=== PATIENT | male | born 1950 | race Caucasian/White ===

== ENCOUNTER 2017-02-06 12:03 | Inpatient (IN) | payer BC, MEDICARE ==
[~2017-02-06] VITALS: Ht 170.2 cm; Wt 79.1 kg
[2017-02-06 13:00] LABS: HEMATOCRIT 42.1 % (39.2-51.8); HEMOGLOBIN 14.1 g/dL (13.7-18.0); WHITE BLOOD COUNT 6.6 x10^3/uL (3.4-10)
[2017-02-06] MEDS ORDERED: ATOR20TA9 PO (13:06)
[2017-02-06] MEDS ORDERED: LISI-170 PO (13:06)
[2017-02-06 13:13] LABS: BLOOD UREA NITROGEN 16 mg/dL (7-18)
[2017-02-06 14:06] VITALS: BP 144/82
[2017-02-06 17:00] VITALS: BP 167/77
[2017-02-06] MEDS ORDERED: PNEUMOC 13-VALENT VACC, 0.5 ML IM-VACC ONE (17:00)
[2017-02-06] MEDS ORDERED: CITA10TA4 PO (17:56)
[2017-02-06] MEDS ORDERED: ASPI-496 PO (17:56)
[2017-02-06] MEDS ORDERED: ALPR0.257 SL (17:57)
[2017-02-06] MEDS ORDERED: NEBI10TA3 PO (17:58)
[2017-02-06] MEDS ORDERED: HYDR-3144 PO (17:59)
[2017-02-06] MEDS ORDERED: DOCUSATE 100 MG CAPSULE PO PRN (18:30)
[2017-02-06] MEDS ORDERED: POLYETHYLENE GLYCOL 17 GM PACKET PO PRN (18:30)
[2017-02-06] MEDS ORDERED: ACETAMINOPHEN 325 MG TABLET PO PRN (18:30)
[2017-02-06] MEDS ORDERED: BISACODYL 10 MG SUPP PR PRN (18:30)
[2017-02-06] MEDS ORDERED: ENALAPRILAT 1.25 MG/ML, 2ML IVPush PRN (18:30)
[2017-02-06] MEDS ORDERED: hydrALAzine 20 MG/ML, 1ML IVPush PRN (18:30)
[2017-02-06] MEDS ORDERED: ONDANSETRON 2MG/ML, 2ML IVPush PRN (18:30)
[2017-02-06 18:41] LABS: BLOOD UREA NITROGEN 15 mg/dL (7-18)
[2017-02-06 18:45] VITALS: BP 137/73
[2017-02-06 18:49] LABS: ASPARTATE AMINO TRANSFERASE 19 U/L (15-37); C-REACTIVE PROTEIN, QUANT 0.04 mg/dL (0.02-0.49)
[2017-02-06] MEDS: ATORVASTATIN 40 MG TABLET PO SCH (20:38)
[2017-02-06 21:14] VITALS: BP 120/74
[2017-02-07] MEDS: OXYcodone IR 5MG TABLET PO PRN ×2 (01:06→17:02)
[2017-02-07 01:15] VITALS: BP 116/64
[2017-02-07] MEDS ORDERED: SODIUM CHLORIDE 0.9% 1,000 ML IV SCH (02:00)
[2017-02-07] MEDS: HYDROcodone/APAP 10/325 MG TABLET PO PRN ×2 (05:27→17:07)
[2017-02-07 05:50] LABS: HEMATOCRIT 38.8 % (39.2-51.8); HEMOGLOBIN 13.3 g/dL (13.7-18.0); WHITE BLOOD COUNT 5.5 x10^3/uL (3.4-10)
[2017-02-07 06:20] LABS: ASPARTATE AMINO TRANSFERASE 19 U/L (15-37)
[2017-02-07 06:27] VITALS: BP 136/79
[2017-02-07 07:22] LABS: BLOOD UREA NITROGEN 15 mg/dL (7-18)
[2017-02-07] MEDS: LISINOPRIL 20 MG TABLET PO SCH (09:43)
[2017-02-07] MEDS: NEBIVOLOL HCL 5 MG TABLET PO SCH (09:44)
[2017-02-07] MEDS: CITALOPRAM 10 MG TABLET PO SCH (09:44)
[2017-02-07] MEDS: ASPIRIN 81 MG TABLET EC PO SCH (09:44)
[2017-02-07] MEDS ORDERED: LIDOCAINE 2%, 20ML ONE ×2 (12:02→12:55)
[2017-02-07] MEDS ORDERED: CEFAZOLIN PMX 1GM/50ML 50 ML ONE (12:02)
[2017-02-07] MEDS ORDERED: MIDAZOLAM 1 MG/ML, 5ML ONE ×2 (12:02→12:58)
[2017-02-07] MEDS ORDERED: FENTANYL PF 100 MCG/2ML ONE ×2 (12:02→12:58)
[2017-02-07] MEDS ORDERED: CEFAZOLIN 1,000 MG ONE (12:02)
[2017-02-07] MEDS ORDERED: VANCOMYCIN PMX 1GM/200ML 200 ML ONE (12:39)
[2017-02-07] MEDS ORDERED: VANCOMYCIN 500 MG ONE (12:39)
[2017-02-07] MEDS ORDERED: DIPHENHYDRAMINE 50 MG/ML, 1ML ONE (12:58)
[2017-02-07 15:11] VITALS: BP 125/68
[2017-02-07 19:46] VITALS: BP 114/66
[2017-02-07] MEDS: ATORVASTATIN 40 MG TABLET PO SCH (19:56)
[2017-02-07] MEDS: morphine SULFATE 10 MG/ML, 1ML IVPush PRN (19:56)
[2017-02-07] MEDS: SODIUM CHLORIDE FLUSH 10ML SYR IVF SCH (19:56)
[2017-02-07] MEDS: HYDROcodone/APAP 5/325 TABLET PO PRN (21:41)
[2017-02-08] MEDS: HYDROcodone/APAP 5/325 TABLET PO PRN (01:56)
[2017-02-08 02:10] VITALS: BP 157/87
[2017-02-08] MEDS: morphine SULFATE 10 MG/ML, 1ML IVPush PRN (02:55)
[2017-02-08] MEDS: OXYcodone IR 5MG TABLET PO PRN ×4 (08:34→21:48)
[2017-02-08 08:38] VITALS: BP 128/72
[2017-02-08] MEDS: ASPIRIN 81 MG TABLET EC PO SCH (10:22)
[2017-02-08] MEDS: LISINOPRIL 20 MG TABLET PO SCH (10:22)
[2017-02-08] MEDS: NEBIVOLOL HCL 5 MG TABLET PO SCH (10:22)
[2017-02-08] MEDS: CITALOPRAM 10 MG TABLET PO SCH (10:22)
[2017-02-08] MEDS: SODIUM CHLORIDE FLUSH 10ML SYR IVF SCH ×2 (10:23→19:48)
[2017-02-08 14:38] VITALS: BP 111/68
[2017-02-08] MEDS: CEFTAROLINE 600 MG in SODIUM CHLORIDE 0.9% 100 ML IV SCH (14:38)
[2017-02-08] MEDS ORDERED: BISACODYL 10 MG SUPP PR PRN (16:30)
[2017-02-08] MEDS ORDERED: DOCUSATE 100 MG CAPSULE PO PRN (16:30)
[2017-02-08] MEDS ORDERED: ONDANSETRON 2MG/ML, 2ML IVPush PRN (16:30)
[2017-02-08] MEDS ORDERED: ENALAPRILAT 1.25 MG/ML, 2ML IVPush PRN (16:30)
[2017-02-08] MEDS ORDERED: hydrALAzine 20 MG/ML, 1ML IVPush PRN (16:30)
[2017-02-08] MEDS ORDERED: ACETAMINOPHEN 325 MG TABLET PO PRN (16:30)
[2017-02-08] MEDS ORDERED: POLYETHYLENE GLYCOL 17 GM PACKET PO PRN (16:30)
[2017-02-08 19:45] VITALS: BP 107/64
[2017-02-08] MEDS: ATORVASTATIN 40 MG TABLET PO SCH (19:47)
[2017-02-09 02:00] VITALS: BP 121/74
[2017-02-09] MEDS: OXYcodone IR 5MG TABLET PO PRN ×6 (02:02→23:52)
[2017-02-09] MEDS: CEFTAROLINE 600 MG in SODIUM CHLORIDE 0.9% 100 ML IV SCH ×2 (02:03→15:12)
[2017-02-09 07:39] VITALS: BP 107/61
[2017-02-09] MEDS: ASPIRIN 81 MG TABLET EC PO SCH (10:11)
[2017-02-09] MEDS: CITALOPRAM 10 MG TABLET PO SCH (10:11)
[2017-02-09] MEDS: NEBIVOLOL HCL 5 MG TABLET PO SCH (10:11)
[2017-02-09] MEDS: SODIUM CHLORIDE FLUSH 10ML SYR IVF SCH ×2 (10:12→20:34)
[2017-02-09] MEDS: LISINOPRIL 20 MG TABLET PO SCH (10:12)
[2017-02-09 13:23] VITALS: BP 115/69
[2017-02-09 18:53] VITALS: BP 113/67
[2017-02-09] MEDS: ATORVASTATIN 40 MG TABLET PO SCH (19:48)
[2017-02-10 01:33] VITALS: BP 106/66
[2017-02-10] MEDS: CEFTAROLINE 600 MG in SODIUM CHLORIDE 0.9% 100 ML IV SCH (02:22)
[2017-02-10] MEDS: OXYcodone IR 5MG TABLET PO PRN ×5 (03:57→20:43)
[2017-02-10 06:28] LABS: HEMATOCRIT 36.9 % (39.2-51.8); HEMOGLOBIN 12.5 g/dL (13.7-18.0); WHITE BLOOD COUNT 11.4 x10^3/uL (3.4-10)
[2017-02-10 06:52] LABS: ASPARTATE AMINO TRANSFERASE 16 U/L (15-37); BLOOD UREA NITROGEN 9 mg/dL (7-18)
[2017-02-10 08:04] VITALS: BP 122/75
[2017-02-10] MEDS: CITALOPRAM 10 MG TABLET PO SCH (08:09)
[2017-02-10] MEDS: ASPIRIN 81 MG TABLET EC PO SCH (08:09)
[2017-02-10] MEDS: NEBIVOLOL HCL 5 MG TABLET PO SCH (08:09)
[2017-02-10] MEDS: LISINOPRIL 20 MG TABLET PO SCH (08:09)
[2017-02-10] MEDS: SODIUM CHLORIDE FLUSH 10ML SYR IVF SCH ×2 (08:10→20:43)
[2017-02-10 10:53] LABS: HEPATITIS C PCR QUANTITATION HCV Not Detected IU/mL (.)
[2017-02-10] MEDS: DAPTOMYCIN 500 MG in SODIUM CHLORIDE 0.9% 100 ML IV SCH (13:17)
[2017-02-10 14:35] VITALS: BP 105/64
[2017-02-10] MEDS: ATORVASTATIN 40 MG TABLET PO SCH (20:43)
[2017-02-10 20:49] VITALS: BP 126/74
[2017-02-11] MEDS: OXYcodone IR 5MG TABLET PO PRN ×6 (00:37→22:48)
[2017-02-11 01:25] VITALS: BP 116/71
[2017-02-11 07:00] VITALS: BP 144/81
[2017-02-11] MEDS: LISINOPRIL 20 MG TABLET PO SCH (08:46)
[2017-02-11] MEDS: ASPIRIN 81 MG TABLET EC PO SCH (08:46)
[2017-02-11] MEDS: CITALOPRAM 10 MG TABLET PO SCH (08:46)
[2017-02-11] MEDS: NEBIVOLOL HCL 5 MG TABLET PO SCH (08:47)
[2017-02-11] MEDS ORDERED: morphine SULFATE 10 MG/ML, 1ML IVPush STA (10:24)
[2017-02-11] MEDS: SODIUM CHLORIDE FLUSH 10ML SYR IVF SCH ×2 (12:01→19:34)
[2017-02-11] MEDS: DAPTOMYCIN 500 MG in SODIUM CHLORIDE 0.9% 100 ML IV SCH (12:01)
[2017-02-11 14:42] VITALS: BP 110/66
[2017-02-11] MEDS: ATORVASTATIN 40 MG TABLET PO SCH (19:33)
[2017-02-11 20:10] VITALS: BP 110/63
[2017-02-12 01:20] VITALS: BP 107/64
[2017-02-12] MEDS: OXYcodone IR 5MG TABLET PO PRN ×3 (04:11→12:45)
[2017-02-12 04:48] LABS: HEMATOCRIT 36.1 % (39.2-51.8); HEMOGLOBIN 12.2 g/dL (13.7-18.0); WHITE BLOOD COUNT 6.4 x10^3/uL (3.4-10)
[2017-02-12 04:58] LABS: BLOOD UREA NITROGEN 12 mg/dL (7-18)
[2017-02-12 07:09] VITALS: BP 119/70
[2017-02-12] MEDS: ASPIRIN 81 MG TABLET EC PO SCH (08:45)
[2017-02-12] MEDS: CITALOPRAM 10 MG TABLET PO SCH (08:45)
[2017-02-12] MEDS: NEBIVOLOL HCL 5 MG TABLET PO SCH (08:46)
[2017-02-12] MEDS: SODIUM CHLORIDE FLUSH 10ML SYR IVF SCH (08:46)
[2017-02-12] MEDS: LISINOPRIL 20 MG TABLET PO SCH ×2 (08:46→12:28)
[2017-02-12] MEDS: HYDROcodone/APAP 5/325 TABLET PO PRN (08:55)
[2017-02-12] MEDS ORDERED: DAPT500V6 IV (12:27)
[2017-02-12] MEDS: DAPTOMYCIN 500 MG in SODIUM CHLORIDE 0.9% 100 ML IV SCH (12:27)
[2017-02-12 12:47] VITALS: BP 139/74
== END 2017-02-12 15:50 | disposition home or self-care (01) | DRG 261 ==
LOC: ED 13:05 → EDIP 13:06 → ED 13:34 → 3NE 13:57 → 5SO 16:50 → DCLOUNGE 02-12 15:12
PROVIDERS: ADMIT Internal Medicine; ATTEND Internal Medicine
PROC: 02PA3MZ Removal of Cardiac Lead from Heart, Percutaneous Approach (ICD-10-PCS; principal; 2017-02-07)
PROC: 0JPT0PZ Removal of Cardiac Rhythm Related Device from Trunk Subcutaneous Tissue and Fascia, Open Approach (ICD-10-PCS; 2017-02-07)
PROC: 02HV33Z Insertion of Infusion Device into Superior Vena Cava, Percutaneous Approach (ICD-10-PCS; 2017-02-09)
PROC: B548ZZA Ultrasonography of Superior Vena Cava, Guidance (ICD-10-PCS; 2017-02-09)
DX: T82.7XXA Infection and inflammatory reaction due to other cardiac and vascular devices, implants and grafts, initial encounter (principal); L03.313 Cellulitis of chest wall; Y83.1 Surgical operation with implant of artificial internal device as the cause of abnormal reaction of the patient, or of later complication, without mention of misadventure at the time of the procedure; I10 Essential (primary) hypertension; E78.5 Hyperlipidemia, unspecified; I25.10 Atherosclerotic heart disease of native coronary artery without angina pectoris; D69.6 Thrombocytopenia, unspecified; E11.9 Type 2 diabetes mellitus without complications; F41.9 Anxiety disorder, unspecified; I25.5 Ischemic cardiomyopathy; I34.0 Nonrheumatic mitral (valve) insufficiency; I35.0 Nonrheumatic aortic (valve) stenosis; L40.9 Psoriasis, unspecified; Z87.891 Personal history of nicotine dependence; Z95.1 Presence of aortocoronary bypass graft; Z95.5 Presence of coronary angioplasty implant and graft; Z95.810 Presence of automatic (implantable) cardiac defibrillator; Z98.1 Arthrodesis status; Z86.74 Personal history of sudden cardiac arrest; Z88.8 Allergy status to other drugs, medicaments and biological substances
CPT/HCPCS: 33241; 33244; 36415; 36569; 71010; 76937; 77001; 80048; 80053; 80061; 81003; 82040; 83036; 83735; 84439; 84443; 85025; 85651; 86140; 87040; 87070; 87075; 87205; 87522; 93005; 99156; 99157; 99285; J0690; J0712; J0878; J2250; J3010; J3370; J3490; C1751; J1200; J2270; J7030

== ENCOUNTER → 2017-02-14 | Outpatient (CLI) | payer BC, MEDICARE ==
[~2017-02-14] MED LIST: ALPR0.257 SL; ASPI-496 PO; ATOR20TA9 PO; CITA10TA4 PO; DAPT500V6 IV; HYDR-3144 PO; LISI-170 PO; NEBI10TA3 PO
== END | disposition home or self-care (01) ==
LOC: WOUND 09:56
PROVIDERS: ATTEND Physician Assistant
DX: T81.31XA Disruption of external operation (surgical) wound, not elsewhere classified, initial encounter (principal); E11.69 Type 2 diabetes mellitus with other specified complication; I25.10 Atherosclerotic heart disease of native coronary artery without angina pectoris; I10 Essential (primary) hypertension; F41.9 Anxiety disorder, unspecified; Z87.891 Personal history of nicotine dependence; Z95.1 Presence of aortocoronary bypass graft; Z72.89 Other problems related to lifestyle; Y92.89 Other specified places as the place of occurrence of the external cause; Y83.8 Other surgical procedures as the cause of abnormal reaction of the patient, or of later complication, without mention of misadventure at the time of the procedure
CPT/HCPCS: 97605; 99215

== ENCOUNTER → 2017-02-17 | Outpatient (CLI) | payer BC, MEDICARE | END | disposition home or self-care (01) | LOC: WOUND 10:39 | PROVIDERS: ATTEND Physician Assistant | DX: T81.31XD Disruption of external operation (surgical) wound, not elsewhere classified, subsequent encounter (principal); E11.69 Type 2 diabetes mellitus with other specified complication; I25.2 Old myocardial infarction; I10 Essential (primary) hypertension; I25.10 Atherosclerotic heart disease of native coronary artery without angina pectoris; Z72.89 Other problems related to lifestyle; Z87.891 Personal history of nicotine dependence; F41.9 Anxiety disorder, unspecified; Z95.1 Presence of aortocoronary bypass graft; Y83.8 Other surgical procedures as the cause of abnormal reaction of the patient, or of later complication, without mention of misadventure at the time of the procedure | CPT/HCPCS: 97605 ==

== ENCOUNTER → 2017-02-19 | Outpatient (CLI) | payer BC, MEDICARE ==
[~2017-02-19] MED LIST changes: -HYDR-3144 PO; +HYDR-3245 PO
== END | disposition home or self-care (01) ==
LOC: WOUND 08:39
PROVIDERS: ATTEND Internal Medicine
DX: T81.31XD Disruption of external operation (surgical) wound, not elsewhere classified, subsequent encounter (principal); F41.9 Anxiety disorder, unspecified; I25.10 Atherosclerotic heart disease of native coronary artery without angina pectoris; I10 Essential (primary) hypertension; E78.5 Hyperlipidemia, unspecified; I25.2 Old myocardial infarction; Z72.89 Other problems related to lifestyle; Z87.891 Personal history of nicotine dependence; Y83.8 Other surgical procedures as the cause of abnormal reaction of the patient, or of later complication, without mention of misadventure at the time of the procedure
CPT/HCPCS: 97605

== ENCOUNTER → 2017-02-21 | Outpatient (CLI) | payer BC, MEDICARE | END | disposition home or self-care (01) | LOC: WOUND 09:00 | PROVIDERS: ATTEND Physician Assistant | DX: T81.31XD Disruption of external operation (surgical) wound, not elsewhere classified, subsequent encounter (principal); E11.69 Type 2 diabetes mellitus with other specified complication; I25.2 Old myocardial infarction; I10 Essential (primary) hypertension; I25.10 Atherosclerotic heart disease of native coronary artery without angina pectoris; F41.9 Anxiety disorder, unspecified; Z95.1 Presence of aortocoronary bypass graft; E78.5 Hyperlipidemia, unspecified; Z72.89 Other problems related to lifestyle; Z87.891 Personal history of nicotine dependence | CPT/HCPCS: 97605 ==

== ENCOUNTER → 2017-02-24 | Outpatient (CLI) | payer BC, MEDICARE | END | disposition home or self-care (01) | LOC: WOUND 08:56 | PROVIDERS: ATTEND Internal Medicine | DX: T81.31XD Disruption of external operation (surgical) wound, not elsewhere classified, subsequent encounter (principal); I25.10 Atherosclerotic heart disease of native coronary artery without angina pectoris; I10 Essential (primary) hypertension; E11.69 Type 2 diabetes mellitus with other specified complication; F41.9 Anxiety disorder, unspecified; E78.5 Hyperlipidemia, unspecified; I25.2 Old myocardial infarction; Z72.89 Other problems related to lifestyle; Z87.891 Personal history of nicotine dependence; Z95.1 Presence of aortocoronary bypass graft; Y83.8 Other surgical procedures as the cause of abnormal reaction of the patient, or of later complication, without mention of misadventure at the time of the procedure | CPT/HCPCS: 97605 ==

== ENCOUNTER → 2017-02-26 | Outpatient (CLI) | payer BC, MEDICARE | END | disposition home or self-care (01) | LOC: WOUND 08:38 | PROVIDERS: ATTEND Internal Medicine | DX: T81.31XD Disruption of external operation (surgical) wound, not elsewhere classified, subsequent encounter (principal); I10 Essential (primary) hypertension; F41.9 Anxiety disorder, unspecified; I25.10 Atherosclerotic heart disease of native coronary artery without angina pectoris; E78.5 Hyperlipidemia, unspecified; I25.2 Old myocardial infarction; E11.9 Type 2 diabetes mellitus without complications; Z72.89 Other problems related to lifestyle; Z87.891 Personal history of nicotine dependence; Z95.1 Presence of aortocoronary bypass graft; Y83.8 Other surgical procedures as the cause of abnormal reaction of the patient, or of later complication, without mention of misadventure at the time of the procedure | CPT/HCPCS: 97605 ==

== ENCOUNTER → 2017-02-28 | Outpatient (CLI) | payer BC, MEDICARE | END | disposition home or self-care (01) | LOC: WOUND 08:32 | PROVIDERS: ATTEND Physician Assistant | DX: T81.31XD Disruption of external operation (surgical) wound, not elsewhere classified, subsequent encounter (principal); I10 Essential (primary) hypertension; F41.9 Anxiety disorder, unspecified; I25.10 Atherosclerotic heart disease of native coronary artery without angina pectoris; E78.5 Hyperlipidemia, unspecified; I25.2 Old myocardial infarction; Z87.891 Personal history of nicotine dependence; Z95.1 Presence of aortocoronary bypass graft; Z72.89 Other problems related to lifestyle; Y83.8 Other surgical procedures as the cause of abnormal reaction of the patient, or of later complication, without mention of misadventure at the time of the procedure | CPT/HCPCS: 99214 ==

== ENCOUNTER → 2017-03-07 | Outpatient (CLI) | payer BC, MEDICARE | END | disposition home or self-care (01) | LOC: WOUND 08:59 | PROVIDERS: ATTEND Physician Assistant | DX: T81.31XD Disruption of external operation (surgical) wound, not elsewhere classified, subsequent encounter (principal); E11.69 Type 2 diabetes mellitus with other specified complication; I25.2 Old myocardial infarction; I10 Essential (primary) hypertension; I25.10 Atherosclerotic heart disease of native coronary artery without angina pectoris; Z72.89 Other problems related to lifestyle; F41.9 Anxiety disorder, unspecified; E78.5 Hyperlipidemia, unspecified; Z87.891 Personal history of nicotine dependence; Y83.8 Other surgical procedures as the cause of abnormal reaction of the patient, or of later complication, without mention of misadventure at the time of the procedure | CPT/HCPCS: 99214 ==

== ENCOUNTER → 2017-03-14 | Outpatient (CLI) | payer BC, MEDICARE | END | disposition home or self-care (01) | LOC: WOUND 08:50 | PROVIDERS: ATTEND Physician Assistant | DX: T81.31XD Disruption of external operation (surgical) wound, not elsewhere classified, subsequent encounter (principal); I25.2 Old myocardial infarction; I10 Essential (primary) hypertension; F41.9 Anxiety disorder, unspecified; I25.10 Atherosclerotic heart disease of native coronary artery without angina pectoris; E78.5 Hyperlipidemia, unspecified; Z72.89 Other problems related to lifestyle; Z87.891 Personal history of nicotine dependence; Z95.1 Presence of aortocoronary bypass graft; Y83.8 Other surgical procedures as the cause of abnormal reaction of the patient, or of later complication, without mention of misadventure at the time of the procedure | CPT/HCPCS: 99214 ==

== ENCOUNTER → 2017-03-14 | Outpatient (CLI) | payer BC, MEDICARE | END | disposition home or self-care (01) | LOC: STAR 13:38 | PROVIDERS: ATTEND Internal Medicine Cardiovascular Disease | DX: Z01.818 Encounter for other preprocedural examination (principal); R79.1 Abnormal coagulation profile; Z95.810 Presence of automatic (implantable) cardiac defibrillator | CPT/HCPCS: 36415; 80048; 85025; 85610 ==

== ENCOUNTER 2017-03-18 06:33 | Observation (INO) | payer BC, MEDICARE ==
[2017-03-14 14:25] VITALS: BP 142/72
[2017-03-14 14:31] LABS: HEMATOCRIT 40.9 % (39.2-51.8); WHITE BLOOD COUNT 7.4 x10^3/uL (3.4-10)
[2017-03-14 14:44] LABS: BLOOD UREA NITROGEN 18 mg/dL (7-18)
[~2017-03-18] VITALS: Ht 172.7 cm; Wt 80.2 kg
[2017-03-18] MEDS: SODIUM CHLORIDE 0.9% 1,000 ML IV SCH ×4 (06:36→20:33)
[2017-03-18] MEDS ORDERED: CEFAZOLIN PMX 1GM/50ML 50 ML IVPB ONE (07:00)
[2017-03-18] MEDS ORDERED: FENTANYL PF 100 MCG/2ML ONE ×2 (07:47)
[2017-03-18] MEDS ORDERED: MIDAZOLAM 1 MG/ML, 5ML ONE (07:47)
[2017-03-18] MEDS ORDERED: LIDOCAINE 2%, 20ML ONE (07:48)
[2017-03-18] MEDS ORDERED: CEFAZOLIN 1,000 MG ONE ×2 (07:48→08:07)
[2017-03-18] MEDS ORDERED: PROPOFOL 10 MG/ML, 20ML ONE (08:07)
[2017-03-18] MEDS ORDERED: ZOLPIDEM 5MG TABLET PO PRN (09:00)
[2017-03-18] MEDS: LISINOPRIL 20 MG TABLET PO SCH (09:00)
[2017-03-18] MEDS: CITALOPRAM 10 MG TABLET PO SCH (09:00)
[2017-03-18] MEDS ORDERED: HYDROcodone/APAP 5/325 TABLET PO PRN (09:00)
[2017-03-18] MEDS: ASPIRIN 81 MG TABLET EC PO SCH (12:03)
[2017-03-18] MEDS: CEFAZOLIN PMX 1GM/50ML 50 ML IVPB SCH ×2 (12:03→20:52)
[2017-03-18] MEDS: SODIUM CHLORIDE FLUSH 10ML SYR IVF SCH ×2 (12:03→19:46)
[2017-03-18] MEDS: HYDROcodone/APAP 10/325 MG TABLET PO PRN ×2 (12:48→20:52)
[2017-03-18 14:50] VITALS: BP 117/75
[2017-03-18 19:42] VITALS: BP 150/80
[2017-03-18] MEDS ORDERED: ATORVASTATIN 20 MG TABLET PO SCH (21:00)
[2017-03-19 01:31] VITALS: BP 158/80
[2017-03-19] MEDS: HYDROcodone/APAP 10/325 MG TABLET PO PRN (04:53)
[2017-03-19] MEDS: CITALOPRAM 10 MG TABLET PO SCH (07:38)
[2017-03-19] MEDS: LISINOPRIL 20 MG TABLET PO SCH (07:38)
[2017-03-19] MEDS: ASPIRIN 81 MG TABLET EC PO SCH (07:38)
[2017-03-19] MEDS: SODIUM CHLORIDE FLUSH 10ML SYR IVF SCH (07:38)
[2017-03-19 07:40] VITALS: BP 153/77
== END 2017-03-19 09:40 | disposition home or self-care (01) ==
LOC: CACL 06:33 → ORIP 08:56 → 5SO 10:35 → DCLOUNGE 03-19 09:35
PROVIDERS: ADMIT Internal Medicine Cardiovascular Disease; ATTEND Internal Medicine Cardiovascular Disease
DX: I49.01 Ventricular fibrillation (principal); I10 Essential (primary) hypertension; E78.00 Pure hypercholesterolemia, unspecified; E78.5 Hyperlipidemia, unspecified; Z86.74 Personal history of sudden cardiac arrest; Z95.810 Presence of automatic (implantable) cardiac defibrillator
CPT/HCPCS: 33249; 71010; 93641; 96365; 96375; C1722; C1892; C1895; G0378; J0690; J2250; J2704; J3010; J3490; 36415; 80048; 85025; 85610

== ENCOUNTER → 2018-09-01 | Outpatient (CLI) | payer BC, MEDICARE ==
[~2018-09-01] MED LIST changes: +ATOR20TA37 PO; -ATOR20TA9 PO
== END | disposition home or self-care (01) ==
LOC: CFH 08:40
PROVIDERS: ATTEND Internal Medicine Cardiovascular Disease
DX: I08.3 Combined rheumatic disorders of mitral, aortic and tricuspid valves (principal); I11.9 Hypertensive heart disease without heart failure; E78.5 Hyperlipidemia, unspecified; Z86.74 Personal history of sudden cardiac arrest; Z87.891 Personal history of nicotine dependence; Z95.5 Presence of coronary angioplasty implant and graft; Z95.1 Presence of aortocoronary bypass graft
CPT/HCPCS: 93306

== ENCOUNTER 2019-02-10 10:44 | Day surgery (SDC) | payer BC, MEDICARE ==
[~2019-02-10] VITALS: Ht 170.2 cm; Wt 77.3 kg
[2019-02-10 11:44] VITALS: BP 165/84
== END 2019-02-10 16:25 | disposition home or self-care (01) ==
LOC: OUT 10:44
PROVIDERS: ATTEND Internal Medicine Gastroenterology
DX: Z12.11 Encounter for screening for malignant neoplasm of colon (principal); D12.3 Benign neoplasm of transverse colon; K64.8 Other hemorrhoids; K21.0 Gastro-esophageal reflux disease with esophagitis; K44.9 Diaphragmatic hernia without obstruction or gangrene; I10 Essential (primary) hypertension; Z88.8 Allergy status to other drugs, medicaments and biological substances; Z95.810 Presence of automatic (implantable) cardiac defibrillator
CPT/HCPCS: 43239; 43248; 45385; 88305; 93005; J2250; J2704; J3010; J7120